=== PATIENT | female | born 1945 | race Caucasian/White ===

== ENCOUNTER 2017-02-12 09:25 | Emergency (ER) | payer MEDICARE ==
[~2017-02-12] VITALS: Ht 162.6 cm; Wt 63.6 kg
[~2017-02-12 09:25] MED LIST: MULT-1073 PO
[2017-02-12 09:30] VITALS: BP 186/96; PULSE 110; RESP 16; O2SAT 95
--- NOTE | 2017-02-12 09:54 | ED.REPORT ---
HPI-Chest Pain 40 and Over Date of Service February 12, 2017 ED Provider: Robin Carranza DO 71 y/o female with a hx of hypercholesterolemia and chronic back pain presents to the ED complaining of left chest pain upon raising her left arm, onset two days ago. She described the pain as "sharp and stabbing". The pt reports she was working on a tractor on Sunday when she believes she pulled a muscle. She denies left shoulder pain, SOB and rash. Nursing Notes Stated Complaint: CHEST PAIN Chief Complaint: Chest Pain Nursing Notes Reviewed: Yes Allergies: Coded Allergies: No Known Allergies (Verified Allergy, Unknown, 04/28/14) Uncoded Allergies: No Known Allergies (Allergy, Severe, 09/04/05) Scheduled Multivits-Min/FA/Lycopene/Lut (Centrum Silver Tablet) 1 Each Tablet 1 EACH PO DAILY Simvastatin (Simvastatin) Unknown Strength Tablet Unknown Dose PO HS Scheduled PRN Hydrocodone-Acetaminophen 5-325 mg (Hydrocodone-Acetaminophen 5-325 mg) Unknown Strength Tablet Unknown Dose PO TID PRN PRN For Pain General Time Seen by MD: 09:38 Chief Complaint Chest pain Hx Obtained From: Patient Arrived By: Walk-in Sudden in Onset?: Yes Onset Occurred: 2 days ago Symptom Duration: Since onset Location: : Chest left Quality: Sharp, Stabbing Radiation: : Does not radiate Severity: Current: Moderate Severity: Maximum: Moderate Recent Healthcare: No recent doctor visit Similar Sx Previous: No Past Medical History Past Medical History Hypercholesterolemia Chronic back pain Past Surgical History Back Smoking History Unknown if Ever Smoker Ambulatory Status Independent Review of Systems Respiratory: Denies: Shortness of breath Cardiovascular: Reports: Chest pain (upon raising her left arm) Musculoskeletal: Denies: Joint pain (Left shoulder) Skin: Denies Rash Complete sys rev & neg: except as marked. Physical Exam Initial Vital Signs Vital Signs (First) Date Time Temp Pulse Resp B/P Pulse Ox O2 Delivery O2 Flow Rate FiO2 02/12/17 09:30 36.0 110 16 186/96 95 Room Air Head / Eyes: Atraumatic, Normocephalic Neck: Supple, Full range of motion Extremities: Vascular intact, Neuro intact, No swelling, No tenderness Skin: Warm, Dry, No cyanosis Neurologic: Alert, Oriented, Nonfocal General/Constitutional: Awake, Alert, No acute distress, Cooperative Respiratory / Chest: Atraumatic, Breath sounds NL, Breath sounds = bilat, No respiratory distress, No rales, No rhonchi, No wheezing Cardiovascular: Regular rhythm, Heart sounds NL, No gallop, No murmurs, No rubs Heart Rate / Rhythm: Positive: Tachycardia (Mildly) Left chest wall tenderness. Left chest pain with movemet of her left arm. Hypertensive. Abdomen: Atraumatic, Soft, Non-tender Interpretation & Diagnostics PROCEDURE: X-RAY LEFT RIBS, TWO VIEWS ([id number]) IMPRESSION: No displaced left lower rib fractures. Dictated by: Kiet Pedro M.D. on 02/12/2017 at 9:42 Approved by: Kiet Pedro M.D. on 02/12/2017 at 9:43 Lab Results Interpretation Result Diagram: 02/12/17 1120 02/12/17 1120 Test 02/12/17 11:20 White Blood Count 5.3th/mm3 (3.8-10.1) Red Blood Count 4.43mil/mm3 (3.90-5.20) Hemoglobin 14.0g/dL (12.0-15.6) Hematocrit 41.6% (35.0-46.0) Mean Corpuscular Volume 93.9fL (81-100) Mean Corpuscular Hemoglobin 31.6pg (27.0-35.0) Mean Corpuscular Hemoglobin Concent 33.7% (32.0-37.0) Red Cell Distribution Width 12.9% (12.3-15.4) Platelet Count 271bil/L (150-400) Neutrophils (%) (Auto) 78.3% (40-74) Lymphocytes (%) (Auto) 13.0% (14-46) Monocytes (%) (Auto) 6.6% (4-12) Eosinophils (%) (Auto) 1.5% (0-5) Basophils (%) (Auto) 0.4% (0-3) D-Dimer < 0.50mg/L FEU (<0.50) Sodium Level 137mEq/L (134-144) Potassium Level 4.0mEq/L (3.5-5.2) Chloride Level 99mEq/L (97-108) Carbon Dioxide Level 20mmol/L (18-29) Blood Urea Nitrogen 13mg/dL (8-27) Creatinine 0.67mg/dL (0.57-1.00) Estimat Glomerular Filtration Rate 124mL/min (>59) Glucose Level 115mg/dL (60-99) Calcium Level 9.7mg/dL (8.5-10.1) Magnesium Level 2.0mg/dL (1.6-2.6) Total Bilirubin 0.3mg/dL (0.0-1.2) Aspartate Amino Transf (AST/SGOT) 65U/L (0-50) Alanine Aminotransferase (ALT/SGPT) 55U/L (0-32) Alkaline Phosphatase 107U/L (25-165) Troponin T < 0.010ug/L (0.0-0.011) Total Protein 7.9g/dL (6.4-8.4) Albumin 4.7g/dL (3.4-5.0) Hold Garcia Top Tube Received (Received) ECG Interpretation ECG Interpretation: Normal sinus rhtyhm. Rate 96. Time: 09:55 Interpreted by: ED physician X-Ray Chest Interpretation Chest Xray Interpretation: IMPRESSION: Negative chest. No acute cardiopulmonary process is suspected. Dictated by: Kiet Pedro M.D. on 02/12/2017 at 9:44 Approved by: Kiet Pedro M.D. on 02/12/2017 at 9:44 View: Portable, AP & lat Interpretation / Wet Read by: Interpret - Radiologist Re-Eval/Medical Decision Med Decision/Clinical Course History is strongly suspicious for chest wall or musculoskeletal strain. However, she is tachycardic hypertensive and at one point had a borderline oxygen level at 92%. This prompted a more resource intense evaluation. Her laboratory evaluation and EKG are reassuring. Do suspect this is musculoskeletal overall however she is given strict return in follow-up precautions. She declines pain medication. Counseled Regarding: Diagnosis, Lab results, Need for follow-up, When/why to return to ED Discharge & Departure Primary Impression: Chest pain Disposition: Home Discharge Condition All VS Reviewed: Yes Patient Instructions: Angina (ED) Additional Instructions: No life-threatening cause for your symptoms can be identified. Continue to take your home pain medication. Call your regular doctor for close follow-up. Return to the ER as needed if worse. Referrals: Kwabena Jc MD (PCP) Scribe Attestation Portions of this note were transcribed by Edis West. I, , personally performed the history, physical exam and medical decision-making;I reviewed and confirmed the accuracy of the information in the transcribed note. Signed by Anaid Evans. 02/12/17 1300 copies to: Kwabena Jc MD, Timothy S DO February 12, 2017 09:54 Edis West February 12, 2017 10:02
[2017-02-12] MEDS ORDERED: oxyCODONE-Acetamin 5-325 mg Tablet PO ONE (09:55)
--- NOTE | 2017-02-12 10:45 | DRSVH ---
PROCEDURE: X-RAY LEFT RIBS, TWO VIEWS ([id number]) INDICATIONS: chest wall pain TECHNIQUE: 2 views of the left ribs were acquired. COMPARISON: [facility], CR, XR CHEST 2VW, 02/12/2017, 10:17. FINDINGS: Surgical changes and devices: None. Bones and chest wall: No displaced lower left rib fractures are evident. Please note that the upper ribs are not completely included on this exam. No suspicious bony lesions. Overlying soft tissues a ppear unremarkable. Lungs and pleura: The visualized lung appears clear. No pleural effusions or pneumothorax are visib le. IMPRESSION: No displaced left lower rib fractures. Dictated by: Kiet Pedro M.D. on 02/12/2017 at 9:42 Approved by: Kiet Pedro M.D. on 02/12/2017 at 9:43
--- NOTE | 2017-02-12 10:46 | DRSVH ---
PROCEDURE: X-RAY CHEST, TWO VIEWS ([id number]) INDICATIONS: chest wall pain TECHNIQUE: 2 views of the chest were acquired. COMPARISON: [facility], CR, XR RIBS UNILAT 2VW LT, 02/12/2017, 10:17. FINDINGS: Surgical changes and devices: None. Lungs and pleura: No pleural effusions or pneumothorax. Lungs are clear. Mediastinum: Mediastinal contours are normal. Heart size is normal. Bones and chest wall: No suspicious bony abnormalities. Soft tissues appear unremarkable. IMPRESSION: Negative chest. No acute cardiopulmonary process is suspected. Dictated by: Kiet Pedro M.D. on 02/12/2017 at 9:44 Approved by: Kiet Pedro M.D. on 02/12/2017 at 9:44
[2017-02-12 11:41] LABS: BASOPHILS % (AUTO) 0.4 % (0-3); EOSINOPHILS % (AUTO) 1.5 % (0-5); MONOCYTES % (AUTO) 6.6 % (4-12); Mean Corpuscular Hemoglobin 31.6 pg (27.0-35.0); Mean Corpuscular Volume 93.9 fL (81-100); NEUTROPHILS % (AUTO) 78.3 % (40-74); Platelet Count 271 bil/L (150-400)
[2017-02-12 12:14] LABS: TROPONIN T < 0.010 ug/L (0.0-0.011)
[2017-02-12 12:42] VITALS: BP 156/78; PULSE 84; RESP 18; O2SAT 95
[2017-02-12] MEDS ORDERED: HYDR-4003 PO (12:42)
[2017-02-12] MEDS ORDERED: SIMV20TA4 PO (12:42)
[2017-02-12 12:53] VITALS: BP 156/78; PULSE 84; RESP 18; O2SAT 95
== END 2017-02-12 12:54 | disposition home or self-care (01) ==
LOC: SED 09:25
DX: R07.9 Chest pain, unspecified (principal); M54.9 Dorsalgia, unspecified; G89.29 Other chronic pain; E78.00 Pure hypercholesterolemia, unspecified